=== PATIENT | female | born 1985 | race Caucasian/White ===

== ENCOUNTER 2016-08-17 15:40 | Emergency (ER) | payer MEDICARE, OTHER ==
[~2016-08-17] VITALS: Ht 154.9 cm; Wt 70.0 kg
[~2016-08-17 15:40] MED LIST: CLAR10TA7 PO; FOLI1 PO; HYDR200T42 PO; ORTHOTRICYCLINE PO; PRIL20TA2 PO; TRAZ150T2 PO
[2016-08-17 15:42] VITALS: BP 151/72; PULSE 90; RESP 20; TEMP 98.1; O2SAT 100
--- NOTE | 2016-08-17 16:03 | PD ---
Physical Exam Time Seen by Provider: 16:01 Narrative 31yo F c/o urinary frequency. C/o lower back pain. Denies dysuria, hematuria. Denies fever, vomiting. +diarrhea today. LMP end of last month. Patient seen in triage. VS reviewed. Awaiting bed placement. Data Data Last Documented VS Vital Signs Date Time Temp Pulse Resp B/P Pulse Ox O2 Delivery O2 Flow Rate FiO2 08/17/16 15:42 98.1 90 20 151/72 100 Room Air MDM Supervised Visit with ADDI: Barbara Bal Aug 17, 2016 16:03
[2016-08-17] MEDS ORDERED: OMEP20TA PO (17:26)
[2016-08-17] MEDS ORDERED: PLAQ200T PO (17:26)
[2016-08-17] MEDS ORDERED: TRINTAB7 PO (17:26)
--- NOTE | 2016-08-17 17:31 | PD ---
HPI . increased urinary frequency and back pain today Chief Complaint: Complaint Time Seen by Provider: 17:31 Travel History International Travel<30 days: No Contact w/Intl Traveler<30days: No Traveled to known affect area: No History of Present Illness HPI 31-year-old female here with complaints of increased urinary frequency and back pain since today. Patient tells me she thinks she has urinary tract infection and is very scared. She denies any vaginal complaints, dysuria or hematuria. She is a patient of Dr. Bertrand and has not seen him for this. She denies any fever or chills. She has no other complaints. PFSH Past Medical History ADHD: Yes Bipolar Disorder: Yes Diabetes: No Diminished Hearing: No Psychiatric: Yes Tetanus Vaccination: > 5 Years Influenza Vaccination: No ?: Unknown LMP: 07/27/16 Past Surgical History Surgical History: No Previous Surgery Social History Alcohol Use: No Tobacco Use: No Substance Use: No Allergies-Medications (Allergen,Severity, Reaction): Coded Allergies: Latex (Verified Allergy, Intermediate, rash, 08/17/16) Tylenol (Verified Adverse Reaction, Mild, nausea and vomiting, 08/17/16) Reported Meds & Prescriptions Reported Meds & Active Scripts Active Ibuprofen 800 Mg Tab 800 Mg PO TID Reported Plaquenil (Hydroxychloroquine Sulfate) 200 Mg Tab 200 Mg PO DAILY Take with food Trinessa (Norgestimate-Ethinyl Estradiol) 0.18/0.215/0.25 mg-35 Mcg Tab 1 Tab PO DAILY Omeprazole 20 Mg Tab 20 Mg PO DAILY Review of Systems General / Constitutional: No: Fever Eyes: No: Visual changes HENT: No: Headaches Cardiovascular: No: Chest Pain or Discomfort Respiratory: No: Shortness of Breath Gastrointestinal: No: Abdominal Pain Genitourinary: Positive: Frequency, No: Dysuria Musculoskeletal: Positive: Pain (back) Skin: No Rash Neurologic: No: Weakness Psychiatric: No: Depression Endocrine: No: Polydipsia Hematologic/Lymphatic: No: Easy Bruising Physical Exam Narrative GENERAL: AAO x 3, no acute distress, Well-nourished, well-developed patient. SKIN: Warm and dry. No visible rashes or bruising. HEAD: Normocephalic and atraumatic. EYES: No scleral icterus. No injection or drainage. ENT: No nasal drainage noted. Mucous membranes pink. Airway patent. NECK: Supple, trachea midline. No JVD. CARDIOVASCULAR: Regular rate and rhythm without murmurs, gallops, or rubs. RESPIRATORY: Breath sounds equal bilaterally. No accessory muscle use. No rhonchi or rales. GASTROINTESTINAL: Abdomen soft, non-tender, nondistended. No suprapubic tenderness. EXTREMITIES: No cyanosis or edema. BACK: Nontender without obvious deformity. Bilateral CVA tenderness. 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 Data Data Last Documented VS Vital Signs Date Time Temp Pulse Resp B/P Pulse Ox O2 Delivery O2 Flow Rate FiO2 08/17/16 18:10 97.9 76 17 122/84 99 08/17/16 15:42 Room Air Orders Urinalysis - C+S If Indicated (08/17/16 16:44) Ed Urine Pregnancytest Poc (08/17/16 16:44) Labs Laboratory Tests Test 08/17/16 17:02 Urine Color LIGHT-YELLOW Urine Turbidity CLEAR Urine pH 5.5 Urine Specific [place] 1.005 Urine Protein NEG mg/dL Urine Glucose (UA) NEG mg/dL Urine Ketones NEG mg/dL Urine Occult Blood NEG Urine Nitrite NEG Urine Bilirubin NEG Urine Urobilinogen LESS THAN 2.0 MG/DL Urine Leukocyte Esterase NEG Urine RBC 1 /hpf Urine WBC LESS THAN 1 /hpf Urine Squamous Epithelial <1 /hpf Cells Urine Bacteria OCC /hpf Microscopic Urinalysis Comment CULT NOT INDICATED MDM Medical Decision Making Medical Screen Exam Complete: Yes Emergency Medical Condition: Yes Medical Record Reviewed: Yes Differential Diagnosis Urinary tract infection, pyelonephritis, nephrolithiasis Narrative Course 31 yr old female here with c/o increased urinary frequency and back pain. UA ordered. There are no gross abn on UA. I do not see any blood and doubt nephrolithiasis. She does not have any evidence of infection on UA. I've discussed this result with her and she is happy to hear this. She admits to drinking lots of water and this may be the source of her increased urinary frequency. She does have some back pain, therefore I'll give her some ibuprofen. I discussed all this with her and patient is in agreement. I discussed this case with my attending Dr. Lea and she is in agreement. Patient verbalized understanding of instructions, questions were answered, and thanked me for their care. I advised them if their condition worsens, please return to the nearest emergency room for further care. Diagnosis Primary Impression: Back pain Qualified Code: M54.5 - Acute low back pain without sciatica, unspecified back pain laterality Additional Impression: Urinary frequency Patient Instructions: General Instructions Med/Other Pt SpecificInfo: Prescription(s) given Scripts Ibuprofen 800 Mg [id number] Mg PO TID #21 TAB Prov:LeaLaniKelli DO 08/17/16 Disposition: 01 DISCHARGE HOME Condition: Stable Rafaela Fisher Aug 17, 2016 17:31
[2016-08-17 17:53] LABS: BACTERIA, URINE OCC /hpf; BLOOD, URINE NEG (NEG); COMMENT (UR) CULT NOT INDICATED; CULTURE IF INDICATED CULT NOT INDICATED; GLUCOSE,URINE NEG (NEG); KETONE, URINE NEG (NEG); NITRITE,URINE NEG (NEG); PH, URINE 5.5 (5.0-8.5); SQUAMOUS EPITHELIAL CELL URINE <1 /hpf (0-5); URINE COLOR LIGHT-YELLOW (YELLW/STRAW)
[2016-08-17] MEDS ORDERED: IBUP800T23 PO (18:01)
[2016-08-17 18:10] VITALS: BP 122/84; TEMP 97.9
== END 2016-08-17 18:10 | disposition home or self-care (01) ==
LOC: NEPD 15:40
DX: M54.5 Low back pain (principal); R35.0 Frequency of micturition
CPT/HCPCS: 81001; 84703; 99283